=== PATIENT | female | born 1950 | race Caucasian/White ===

== ENCOUNTER → 2016-07-04 | Outpatient (CLI) | payer BC | LOC: MC.RAD 09:11 | DX: Z12.31 Encounter for screening mammogram for malignant neoplasm of breast (principal) ==

== ENCOUNTER → 2017-03-28 | Outpatient (CLI) | payer BC | LOC: COL.RAD 14:11 | DX: M16.11 Unilateral primary osteoarthritis, right hip (principal) | CPT/HCPCS: J3301; Q9967 ==

== ENCOUNTER 2017-06-12 08:16 | Day surgery (SDC) | payer BC, MEDICARE ==
[~2017-06-12] VITALS: Ht 167.6 cm; Wt 91.4 kg
[2017-06-12] MEDS ORDERED: ZOLOFT 100MG100 MG PO (08:50)
[2017-06-12] MEDS ORDERED: LIPITOR20 MG PO (08:51)
[2017-06-12] MEDS ORDERED: SYNTHROID0.175 MG PO (08:51)
[2017-06-12] MEDS ORDERED: OSCAL 500 TAB500 MG PO (08:52)
[2017-06-12] MEDS ORDERED: MOBIC15 MG PO (08:52)
[2017-06-12] MEDS ORDERED: KLONOPIN 0.5MG0.5 MG PO (08:53)
[2017-06-12] MEDS ORDERED: BENTYL 10MG10 MG/CAP PO (08:54)
[2017-06-12 09:03] VITALS: BP 149/71; PULSE 89; TEMP 97
[2017-06-12 09:50] VITALS: BP 146/81; PULSE 106; TEMP 98.7
[2017-06-12 10:05] VITALS: BP 134/72; PULSE 92
[2017-06-12 10:18] VITALS: BP 126/71; PULSE 83
[2017-06-12 10:34] VITALS: BP 132/81; PULSE 84
== END 2017-06-12 10:40 ==
LOC: SDCO 08:16
DX: Z12.11 Encounter for screening for malignant neoplasm of colon (principal); K57.30 Diverticulosis of large intestine without perforation or abscess without bleeding; K64.0 First degree hemorrhoids; I10 Essential (primary) hypertension; E03.9 Hypothyroidism, unspecified; E78.00 Pure hypercholesterolemia, unspecified; Z90.710 Acquired absence of both cervix and uterus
CPT/HCPCS: OP; J2250; J3010; J7030